=== PATIENT | female | born 1970 | race Caucasian/White ===

== ENCOUNTER 2018-06-12 22:31 | Emergency (ER) | payer MEDICAID ==
[~2018-06-12] VITALS: Ht 154.9 cm; Wt 79.8 kg
[2018-06-12 22:43] VITALS: Ht 154.9 cm; Wt 79.8 kg
[2018-06-13 01:21] VITALS: BP 132/63
== END 2018-06-13 01:21 | disposition home or self-care (01) ==
LOC: ED 22:31
DX: S80.02XA Contusion of left knee, initial encounter (principal); S80.862A Insect bite (nonvenomous), left lower leg, initial encounter; I10 Essential (primary) hypertension; W57.XXXA Bitten or stung by nonvenomous insect and other nonvenomous arthropods, initial encounter; Y93.89 Activity, other specified; Y92.89 Other specified places as the place of occurrence of the external cause; Y99.8 Other external cause status

== ENCOUNTER 2018-11-20 19:28 | Emergency (ER) | payer MEDICAID ==
[~2018-11-20] VITALS: Ht 162.6 cm; Wt 81.2 kg
[2018-11-20 20:00] VITALS: Ht 162.6 cm; Wt 81.2 kg
[2018-11-20 21:17] VITALS: BP 142/91
== END 2018-11-20 21:17 | disposition home or self-care (01) ==
LOC: ED 19:28
DX: H60.92 Unspecified otitis externa, left ear (principal); J30.9 Allergic rhinitis, unspecified; I10 Essential (primary) hypertension